=== PATIENT | female | born 1990 | race Caucasian/White ===

== ENCOUNTER 2018-04-18 07:22 | Emergency (ER) | payer MEDICAID ==
[2018-04-18 07:58] LABS: URINE BLOOD (Dip) POC 3+ (NEGATIVE); URINE GLUCOSE (Dip) POC Negative (NEGATIVE); URINE KETONES (Dip) POC Negative (NEGATIVE); URINE LEUKOCYTE EST (Dip) POC 3+ (NEGATIVE); URINE NITRITE (Dip) POC Positive (NEGATIVE); URINE TOTAL PROTEIN POC 2+ (NEGATIVE)
[2018-04-18] MEDS ORDERED: LIDOCAINE 1% (MDV) 10 ML INJ INJ (08:18)
[2018-04-18 08:30] LABS: URINE BLOOD (Dip) POC 3+ (NEGATIVE); URINE GLUCOSE (Dip) POC Negative (NEGATIVE); URINE KETONES (Dip) POC Negative (NEGATIVE); URINE LEUKOCYTE EST (Dip) POC 3+ (NEGATIVE); URINE NITRITE (Dip) POC Positive (NEGATIVE); URINE TOTAL PROTEIN POC 2+ (NEGATIVE)
[2018-04-18] MEDS: HYDROCODONE/APAP (5/325) TAB PO (08:39)
[2018-04-18] MEDS: ONDANSETRON (ODT) 4 MG TAB ODT (08:41)
[2018-04-18] MEDS: CEFTRIAXONE 1 GM INJ IM (08:41)
[2018-04-18] MEDS: LIDOCAINE 1% (MDV) 20 ML INJ INJ (08:42)
== END 2018-04-18 09:11 | disposition home or self-care (01) ==
LOC: FTE 07:22
DX: N39.0 Urinary tract infection, site not specified (principal)
CPT/HCPCS: 81003; 81025; 87086; 96372; 99284-25

== ENCOUNTER 2018-04-18 12:42 | Inpatient (IN) | payer MEDICAID ==
[2018-04-18] MEDS: ACETAMINOPHEN 325 MG TAB PO (13:29)
[2018-04-18] MEDS: SODIUM CHLORIDE 0.9% 1L BAG IV* (13:42)
[2018-04-18] MEDS: CEFTRIAXONE 1 GM/50 ML (PMX) 50 ML IVPB (13:42)
[2018-04-18] MEDS: KETOROLAC 15 MG INJ IV (13:42)
[2018-04-18 13:54] LABS: WHITE BLOOD COUNT 4.7 10^3/ul (4.8-10.8)
[2018-04-18 13:54] LABS: ABNORMAL IP MESSAGE 1; ADD MAN DIFF? YES; HEMATOCRIT 40.5 % (37.0-47.0); HEMOGLOBIN 13.3 g/dl (12.0-16.0); MEAN CORPUSCULAR HEMOGLOBIN 27.9 pg (29.0-33.0); MEAN CORPUSCULAR HGB CONC 32.8 g/dl (32.0-37.0); MEAN CORPUSCULAR VOLUME 84.9 fl (82.0-101.0); MEAN PLATELET VOLUME 11.9 fl (7.4-10.4); PLATELET COUNT 163 10^3/UL (140-415); POSITIVE DIFF @See below; RED BLOOD COUNT 4.77 10^6/ul (4.20-5.40); RED CELL DISTRIBUTION WIDTH 14.2 % (11.5-14.5)
[2018-04-18 14:10] LABS: ADD UMIC YES; INR 0.99; PARTIAL THROMBOPLASTIN TIME 27.2 Sec (25.0-35.0); PROTIME 13.2 Sec (11.9-14.9); UR ASCORBIC ACID NEGATIVE (NEGATIVE); UR BILIRUBIN (Dip) NEGATIVE (NEGATIVE); UR BLOOD (Dip) 1+ mg/dL (NEGATIVE); UR CLARITY SLIGHTLY CLOUDY (CLEAR); UR COLOR YELLOW (YELLOW); UR GLUCOSE (Dip) NEGATIVE (NEGATIVE); UR KETONES (Dip) 1+ mg/dL (NEGATIVE); UR LEUKOCYTE ESTERASE (Dip) 2+ Leu/ul (NEGATIVE); UR NITRITE (Dip) NEGATIVE (NEGATIVE); UR RBC 21 /HPF (0-5); UR SPECIFIC GRAVITY (Dip) 1.024 (1.003-1.030); UR SQUAMOUS EPITHELIAL CELL FEW /HPF (FEW); UR TOTAL PROTEIN (Dip) 1+ mg/dl (NEGATIVE); UR UROBILINOGEN (Dip) NEGATIVE (NEGATIVE); UR WBC 105 /HPF (0-5)
[2018-04-18 14:11] LABS: BLOOD UREA NITROGEN 16 mg/dl (7-20); CALCIUM 9.2 mg/dl (8.4-10.2); CARBON DIOXIDE 25 mmol/L (21-31); GLUCOSE 113 mg/dl (70-220); POTASSIUM 4.1 mmol/L (3.5-5.1); SODIUM 140 mmol/L (135-144)
[2018-04-18 14:16] LABS: LACTIC ACID 2.5 mmol/L (0.5-2.0)
[2018-04-18 14:20] LABS: ANION GAP 17 (8-16); CHLORIDE 102 mmol/L (97-110)
[2018-04-18 14:23] LABS: TROPONIN-I < 0.012 ng/ml (0.000-0.120)
[2018-04-18 14:26] LABS: BAND NEUTROPHILS #M 1.9 10^3/ul (0.0-0.6); BAND NEUTROPHILS % (M) 42 % (0-4); EOSINOPHILS % (M) 1 % (0-7); GIANT THROMBO% (M) 1 % (0-0); LYMPHOCYTES % (M) 2 % (15-51); METAMYELOCYTES %M 1 % (0-0); PLATELET ESTIMATE NORMAL; REACTIVE LYMPHOCYTES% (M) 1 % (0-0); SEG NEUT #M 2.6 10^3/ul (1.6-7.5); SEGMENTED NEUTROPHILS (M) % 53 % (39-77); SMUDGE%M 3 % (0-0)
[2018-04-18] MEDS: LIDOCAINE/MYLANTA 40 ML BTL PO (16:22)
[2018-04-18] MEDS ORDERED: ONDANSETRON 4 MG INJ IV (16:30)
[2018-04-18] MEDS ORDERED: ACETAMINOPHEN 325 MG TAB PO (16:30)
[2018-04-18 16:40] LABS: LACTIC ACID 1.6 mmol/L (0.5-2.0)
[2018-04-18] MEDS ORDERED: NACL 0.9% 3 ML SYG IV (17:00)
[2018-04-18] MEDS: SOD CHLORIDE 0.9% 1,000 ML IV (17:36)
[2018-04-18] MEDS: KETOROLAC 30 MG INJ IV (18:54)
[2018-04-18 19:10] LABS: LACTIC ACID 1.6 mmol/L (0.5-2.0)
[2018-04-18] MEDS: HYDROCODONE/APAP (5/325) TAB PO (20:21)
[2018-04-18] MEDS: CEFTRIAXONE 500 MG in SOD CHLORIDE 0.9% 50 ML IVPB (20:21)
[2018-04-18] MEDS: OXYCODONE/ACETAMINOPHEN (5/325) TAB PO (22:42)
[2018-04-19] MEDS: KETOROLAC 30 MG INJ IV ×3 (00:50→13:40)
[2018-04-19] MEDS: SOD CHLORIDE 0.9% 1,000 ML IV ×4 (01:00→21:22)
[2018-04-19] MEDS ORDERED: PROPOFOL 200 MG INJ (07:00)
[2018-04-19] MEDS ORDERED: SUCCINYLCHOLINE CHLORIDE 100 MG/5 ML SYG IV ×2 (07:00→18:02)
[2018-04-19 07:13] LABS: ADD MAN DIFF? NO
[2018-04-19 07:18] LABS: ABNORMAL IP MESSAGE 1; BASOPHILS % 0.2 % (0.0-2.0); EOSINOPHILS % 0.1 % (0.0-7.0); HEMATOCRIT 32.9 % (37.0-47.0); LYMPHOCYTES # 0.6 10^3/ul (0.8-2.9); LYMPHOCYTES % 4.5 % (15.0-51.0); MEAN CORPUSCULAR HEMOGLOBIN 28.7 pg (29.0-33.0); MEAN CORPUSCULAR HGB CONC 33.4 g/dl (32.0-37.0); MEAN CORPUSCULAR VOLUME 85.9 fl (82.0-101.0); MEAN PLATELET VOLUME 12.6 fl (7.4-10.4); MONOCYTE # 0.4 10^3/ul (0.3-0.9); MONOCYTES % 2.6 % (0.0-11.0); NEUTROPHIL # 12.1 10^3/ul (1.6-7.5); PLATELET COUNT 130 10^3/UL (140-415); RED BLOOD COUNT 3.83 10^6/ul (4.20-5.40)
[2018-04-19 07:18] LABS: WHITE BLOOD COUNT 13.3 10^3/ul (4.8-10.8)
[2018-04-19 07:26] LABS: NEUTROPHILS % 91.2 % (39.0-77.0); POSITIVE DIFF @See below
[2018-04-19 07:30] LABS: HEMOGLOBIN A1C 5.7 % (0-5.9)
[2018-04-19] MEDS ORDERED: CEFTRIAXONE 500 MG in DEXTROSE 5% 50 ML IVPB (07:40)
[2018-04-19 07:41] LABS: PHOSPHORUS 3.7 mg/dl (2.5-4.9)
[2018-04-19 07:41] LABS: HDL CHOLESTEROL 31 mg/dl (33-83); MAGNESIUM 1.4 mg/dl (1.7-2.5); TRIGLYCERIDES 46 mg/dl (0-149)
[2018-04-19] MEDS: OXYCODONE/ACETAMINOPHEN (5/325) TAB PO ×2 (08:01→15:17)
[2018-04-19] MEDS: ENOXAPARIN 40 MG/0.4 ML SYG SC (08:03)
[2018-04-19 08:06] LABS: LACTIC ACID 1.3 mmol/L (0.5-2.0)
[2018-04-19 08:09] LABS: ANION GAP 12 (8-16); BLOOD UREA NITROGEN 14 mg/dl (7-20); CALCIUM 7.2 mg/dl (8.4-10.2); CARBON DIOXIDE 24 mmol/L (21-31); CHLORIDE 108 mmol/L (97-110); CREATININE 0.82 mg/dl (0.44-1.00); GLUCOSE 99 mg/dl (70-220); SODIUM 140 mmol/L (135-144)
[2018-04-19 08:15] LABS: CHOLESTEROL < 50 mg/dl (100-200)
[2018-04-19 09:36] LABS: BAND NEUTROPHILS #M 5.1 10^3/ul (0.0-0.6); BAND NEUTROPHILS % (M) 39 % (0-4); LYMPHOCYTES #M 0.5 10^3/ul (0.8-2.9); LYMPHOCYTES % (M) 4 % (15-51); METAMYELOCYTES #M 0.3 10^3/ul (0.0-0.0); METAMYELOCYTES %M 3 % (0-0); MONOCYTE #M 0.1 10^3/ul (0.3-0.9); MONOCYTES % (M) 1 % (0-11); PLATELET ESTIMATE DECREASED; SEG NEUT #M 7.7 10^3/ul (1.6-7.5); SEGMENTED NEUTROPHILS (M) % 53 % (39-77); SMUDGE%M 6 % (0-0)
[2018-04-19] MEDS: SOD CHLORIDE 0.9% 500 ML IV ×2 (09:42→11:25)
[2018-04-19 09:50] LABS: ALBUMIN 2.8 g/dl (3.3-4.9)
[2018-04-19] MEDS: MAGNESIUM SULFATE 3 GM in DEXTROSE 5% 100 ML IVPB (11:13)
[2018-04-19] MEDS: CEFTRIAXONE 500 MG in DEXTROSE 5% 50 ML IVPB (17:00)
[2018-04-19] MEDS ORDERED: FENTAnyl 50 MCG/ML VIAL (17:53)
[2018-04-19] MEDS ORDERED: LIDOCAINE 100 MG SYRINGE (18:02)
[2018-04-19] MEDS ORDERED: ROCURONIUM 50 MG INJ (18:02)
[2018-04-19] MEDS ORDERED: SUGAMMADEX SODIUM 200 MG/2 ML VIAL IV (18:02)
[2018-04-19] MEDS ORDERED: CEFAZOLIN 1 GM INJ (18:02)
[2018-04-19] MEDS ORDERED: PHENYLephrine (100 MCG/ML) 5ML SYG (18:02)
[2018-04-19] MEDS: ONDANSETRON 4 MG INJ IV (19:18)
[2018-04-19] MEDS: HYDROmorphONE 1 MG/ML SYG IV (21:22)
[2018-04-20] MEDS: HYDROmorphONE 1 MG/ML SYG IV ×4 (01:52→20:55)
[2018-04-20] MEDS: SOD CHLORIDE 0.9% 1,000 ML IV (06:19)
[2018-04-20] MEDS: KETOROLAC 30 MG INJ IV (07:02)
[2018-04-20 07:35] LABS: HEMATOCRIT 30.6 % (37.0-47.0); MEAN CORPUSCULAR HEMOGLOBIN 28.2 pg (29.0-33.0); MEAN CORPUSCULAR HGB CONC 32.7 g/dl (32.0-37.0); MEAN CORPUSCULAR VOLUME 86.4 fl (82.0-101.0); MEAN PLATELET VOLUME 12.2 fl (7.4-10.4); PLATELET COUNT 120 10^3/UL (140-415); RED BLOOD COUNT 3.54 10^6/ul (4.20-5.40); RED CELL DISTRIBUTION WIDTH 15.3 % (11.5-14.5)
[2018-04-20 07:35] LABS: WHITE BLOOD COUNT 10.4 10^3/ul (4.8-10.8)
[2018-04-20 07:39] LABS: ADD MAN DIFF? YES; POSITIVE DIFF @See below
[2018-04-20 08:09] LABS: ALANINE AMINOTRANSFERASE 22 IU/L (13-69); ALBUMIN 2.5 g/dl (3.3-4.9); ALBUMIN/GLOBULIN RATIO 1.04; ALKALINE PHOSPHATASE 58 IU/L (42-121); ANION GAP 9 (8-16); ASPARTATE AMINO TRANSFERASE 17 IU/L (15-46); BILIRUBIN,INDIRECT 0.1 mg/dl (0-1.1); BILIRUBIN,TOTAL 0.1 mg/dl (0.2-1.3); BLOOD UREA NITROGEN 10 mg/dl (7-20); CALCIUM 7.5 mg/dl (8.4-10.2); CARBON DIOXIDE 22 mmol/L (21-31); CHLORIDE 110 mmol/L (97-110); CREATININE 0.42 mg/dl (0.44-1.00); GLUCOSE 88 mg/dl (70-220); MAGNESIUM 2.3 mg/dl (1.7-2.5); POTASSIUM 3.4 mmol/L (3.5-5.1); SODIUM 138 mmol/L (135-144); TOTAL PROTEIN 4.9 g/dl (6.1-8.1)
[2018-04-20 08:20] LABS: BAND NEUTROPHILS % (M) 29 % (0-4); EOSINOPHILS % (M) 1 % (0-7); GIANT THROMBO% (M) 2 % (0-0); LYMPHOCYTES #M 1.2 10^3/ul (0.8-2.9); LYMPHOCYTES % (M) 12 % (15-51); MONOCYTE #M 0.1 10^3/ul (0.3-0.9); MONOCYTES % (M) 1 % (0-11); PLATELET ESTIMATE DECREASED; SEG NEUT #M 6.2 10^3/ul (1.6-7.5); SEGMENTED NEUTROPHILS (M) % 57 % (39-77); SMUDGE%M 2 % (0-0)
[2018-04-20] MEDS: POTASSIUM CHLORIDE (SR) 10 MEQ TAB PO (11:32)
[2018-04-20] MEDS: OXYCODONE/ACETAMINOPHEN (5/325) TAB PO (13:00)
[2018-04-20] MEDS: CEFTRIAXONE 500 MG in DEXTROSE 5% 50 ML IVPB (17:28)
[2018-04-21] MEDS: HYDROmorphONE 1 MG/ML SYG IV (04:09)
[2018-04-21 06:03] LABS: ADD MAN DIFF? NO
[2018-04-21 06:09] LABS: WHITE BLOOD COUNT 9.4 10^3/ul (4.8-10.8)
[2018-04-21 06:09] LABS: BASOPHILS % 0.1 % (0.0-2.0); EOSINOPHILS # 0.1 10^3/ul (0.0-0.5); EOSINOPHILS % 0.6 % (0.0-7.0); HEMATOCRIT 32.5 % (37.0-47.0); HEMOGLOBIN 10.8 g/dl (12.0-16.0); LYMPHOCYTES # 1.9 10^3/ul (0.8-2.9); LYMPHOCYTES % 20.1 % (15.0-51.0); MEAN CORPUSCULAR HEMOGLOBIN 28.6 pg (29.0-33.0); MEAN CORPUSCULAR HGB CONC 33.2 g/dl (32.0-37.0); MEAN CORPUSCULAR VOLUME 86.2 fl (82.0-101.0); MEAN PLATELET VOLUME 12.5 fl (7.4-10.4); MONOCYTE # 0.5 10^3/ul (0.3-0.9); MONOCYTES % 5.2 % (0.0-11.0); NEUTROPHIL # 6.9 10^3/ul (1.6-7.5); NEUTROPHILS % 73.6 % (39.0-77.0); PLATELET COUNT 173 10^3/UL (140-415); RED BLOOD COUNT 3.77 10^6/ul (4.20-5.40); RED CELL DISTRIBUTION WIDTH 15.3 % (11.5-14.5)
[2018-04-21 06:44] LABS: PHOSPHORUS 2.3 mg/dl (2.5-4.9)
[2018-04-21 06:44] LABS: ANION GAP 8 (8-16); BLOOD UREA NITROGEN 12 mg/dl (7-20); CALCIUM 8.2 mg/dl (8.4-10.2); CARBON DIOXIDE 25 mmol/L (21-31); CHLORIDE 110 mmol/L (97-110); CREATININE 0.42 mg/dl (0.44-1.00); GLUCOSE 80 mg/dl (70-220); POTASSIUM 4.2 mmol/L (3.5-5.1); SODIUM 139 mmol/L (135-144)
[2018-04-21] MEDS: ACETAMINOPHEN 325 MG TAB PO (08:17)
== END 2018-04-21 13:15 | disposition home or self-care (01) | DRG 854 ==
LOC: 2NE 04-20 19:00 → E/R 12:42 → 2NE 16:16
PROC: 0TC78ZZ Extirpation of Matter from Left Ureter, Via Natural or Artificial Opening Endoscopic (ICD-10-PCS; principal; 2018-04-19 17:30)
PROC: 0T778DZ Dilation of Left Ureter with Intraluminal Device, Via Natural or Artificial Opening Endoscopic (ICD-10-PCS; 2018-04-19 17:30)
DX: A41.9 Sepsis, unspecified organism (principal); E87.2 Acidosis; N13.6 Pyonephrosis; E83.51 Hypocalcemia
CPT/HCPCS: 36415; 71045; 74176; 74430; 76775; 80048; 80053; 80061; 81001; 82040; 83036; 83605; 83735; 84100; 84439; 84443; 84484; 85025; 85610; 85730; 87040; 87086; 88300; 93005; 96374; 96375; 99291-25